=== PATIENT | male | born 1990 | race African-American/Black ===

== ENCOUNTER 2019-11-10 10:16 | Outpatient (REF) | payer SELFPAY | END 2019-11-10 10:17 | disposition home or self-care (01) | LOC: HO.LAB 10:16 | PROVIDERS: Visit Provider Internal Medicine | DX: Z20.828 Contact with and (suspected) exposure to other viral communicable diseases (principal) | CPT/HCPCS: 36415; 87635 ==

== ENCOUNTER 2020-01-02 11:03 | Outpatient (REF) | payer SELFPAY | END 2020-01-02 11:04 | disposition home or self-care (01) | LOC: HO.LAB 11:03 | PROVIDERS: Visit Provider Physician Assistant | DX: Z02.1 Encounter for pre-employment examination (principal); Z20.828 Contact with and (suspected) exposure to other viral communicable diseases | CPT/HCPCS: C9803; U0003 ==

== ENCOUNTER → 2021-09-11 11:08 | Outpatient (BNVA) | payer OTHER, SELFPAY | PROVIDERS: Visit Provider Physician Assistant Medical | DX: S29.012A Strain of muscle and tendon of back wall of thorax, initial encounter (principal); S39.012A Strain of muscle, fascia and tendon of lower back, initial encounter; X50.0XXA Overexertion from strenuous movement or load, initial encounter | CPT/HCPCS: 99203; J1885 ==

== ENCOUNTER → 2021-09-15 08:03 | Outpatient (BNVA) | payer OTHER, SELFPAY | PROVIDERS: Visit Provider Physician Assistant Medical | DX: S29.012A Strain of muscle and tendon of back wall of thorax, initial encounter (principal); S39.012A Strain of muscle, fascia and tendon of lower back, initial encounter; X50.0XXA Overexertion from strenuous movement or load, initial encounter | CPT/HCPCS: 99213 ==

== ENCOUNTER → 2021-09-16 08:49 | Outpatient (BNVA) | payer OTHER, SELFPAY | PROVIDERS: Visit Provider Physician Assistant Medical | DX: S29.012A Strain of muscle and tendon of back wall of thorax, initial encounter (principal); S39.012A Strain of muscle, fascia and tendon of lower back, initial encounter; X50.0XXD Overexertion from strenuous movement or load, subsequent encounter | CPT/HCPCS: 99213 ==

== ENCOUNTER 2021-09-22 11:00 | Outpatient (RCR) | payer OTHER, SELFPAY ==
[2021-09-19 08:32] VITALS: BP 183/23; PULSE 75
--- NOTE | 2021-09-22 14:14 | MHC.PT.EP ---
[facility] [place] [facility] [place] Office [place] Office [address] Rayo Duong [address] [phone] F: [phone] F: [phone] F: [phone] F: [phone] Physical Therapy Plan of Care Date of Evaluation: Date of Surgery: Diagnosis: RIGHT THORACIC LUMBAR STRAIN Assessment: 31 YO MALE REF TO PT W H/O 09/11/21 Rt THORACOLUMBAR STRAIN/ SPASM AT WORK WHILE ASSISTING WITH A RESIDENT'S TRANSFER. 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 OF IMPORTANCE, Pt HAS ELEVATED BP AND IS IN THE PROCESS OF PURSUING A PRIMARY CARE DOCTOR/ BP MGMT. Pt HAS LIMITED TRUNK AROM, INCR TISSUE TENSION IN Rt > Lt THORACOLUMBAR PS MM. Pt WOULD BENEFIT FROM PT TO ADDRESS THE ABOVE SOFT TISSUE FINDINGS, DEV A PROGR HEP/ STRETCHING PGM, SELF-SX/ PAIN MGMT TECHN, AND ASSIST HIM IN RESUMING REG ADLs/ CHILDCARE/ RTW REG DUTY. Frequency and Duration: The patient will be seen 2 x WK x 4 WKS Short Term Goals: *COMPLETE INITIAL PT EVAL-MET *Pt'S Rt LATERAL THORACOLUMB PAIN DECR TO 2-3/10 AT MAX W RTW *Pt DEMON WFL TRUNK AROM AND FUNCT SQUAT MECH [place] Goals: *Pt INDEP W PROGR HEP AND FITNESS ROUTINE *Pt DEMON PROPER BODY MECH W 3:3 SIMUL ADLs Treatment Plan: Modalities to reduce pain, spasms and effusion. Manual therapy to restore motion and function. Therapeutic exercise to improve strength and flexibility. Neuromuscular re-education for posture and balance. Therapeutic activities to return to functional activities of daily living. Electronically signed by: Jeniffer VelasquezPT Please sign and return to therapist. Thank you for your referral.
--- NOTE | 2021-11-18 08:24 | MHC.PT.DC ---
[facility] [place] Office [place] Office [place] Office [address] Rayo Duong [address] [phone] F: [phone] F: [phone] F: [phone] F: [phone] Physical Therapy Discharge Report Diagnosis: RIGHT THORACIC LUMBAR STRAIN Date of Surgery: Date of Evaluation: 09/19/21 Date of Discharge: 11/18/21 Treatments to Date: 2 Cancellations to Date: No Shows to Date: 1 Discharge Status: Patient Elected to Stop Visit Non-compliance Discharge Summary: Pt DID NOT MEET PT GOALS- HE WAS VERY SENSITIVE TO EVEN LIGHT TOUCH TO Rt THORACOLUMB PS MM- HE DID DEMON SOME IMPROVED MOBILITY AND WAS LESS GUARDED AT HIS SECOND PT APPT. HE WAS REFERRED TO MD FOR FURTHER ASSESSMENT AND MANAGEMENT OF HIS BP/ HTN. Electronically signed by: Jeniffer Velasquez,PT Please sign and return to therapist. Thank you for your referral.
== END 2021-11-18 08:25 | disposition home or self-care (01) ==
LOC: HO.PT 11:00
PROVIDERS: Visit Provider Physician Assistant Medical
DX: S39.012D Strain of muscle, fascia and tendon of lower back, subsequent encounter (principal); S29.012D Strain of muscle and tendon of back wall of thorax, subsequent encounter; M62.830 Muscle spasm of back
CPT/HCPCS: 97110; 97140; 97162

== ENCOUNTER → 2021-09-25 13:25 | Outpatient (BNVA) | payer OTHER, SELFPAY | PROVIDERS: Visit Provider Physician Assistant Medical | DX: S29.012A Strain of muscle and tendon of back wall of thorax, initial encounter (principal); S39.012A Strain of muscle, fascia and tendon of lower back, initial encounter; X50.0XXA Overexertion from strenuous movement or load, initial encounter | CPT/HCPCS: 99213 ==

== ENCOUNTER → 2021-10-06 09:18 | Outpatient (BNVA) | payer OTHER, SELFPAY | PROVIDERS: Visit Provider Physician Assistant Medical | DX: R03.0 Elevated blood-pressure reading, without diagnosis of hypertension (principal); S29.012A Strain of muscle and tendon of back wall of thorax, initial encounter; S39.012A Strain of muscle, fascia and tendon of lower back, initial encounter; X50.0XXA Overexertion from strenuous movement or load, initial encounter | CPT/HCPCS: 36415; 80048; 85025; 99213 ==

== ENCOUNTER → 2021-10-21 08:05 | Outpatient (BNVA) | payer OTHER, SELFPAY | PROVIDERS: Visit Provider Physician Assistant Medical | DX: S29.012D Strain of muscle and tendon of back wall of thorax, subsequent encounter (principal); S39.012D Strain of muscle, fascia and tendon of lower back, subsequent encounter; X50.0XXD Overexertion from strenuous movement or load, subsequent encounter | CPT/HCPCS: 99213 ==